=== PATIENT | male | born 1970 | race Caucasian/White ===

== ENCOUNTER → 2020-06-02 | Outpatient (CLI) | payer MEDICARE ==
[~2020-06-02] MED LIST: AZITHROMYCIN 2250 MG PO; BACTRIM DS TAB1 EACH PO; CLEOCIN HCL150 MG PO; IBUPROFEN 800800 M1 PO; NAPROSYN500 MG PO; NASAREL25 ML NS; NOHOMEMEDICATIONS; NORCO 5-325 TA1 EACH PO; NORFLEX100 MG PO; PYRIDIUM100 MG PO
== END ==
LOC: M.CT 12:34
PROVIDERS: ATTEND Specialist
DX: J43.9 Emphysema, unspecified (principal); R91.8 Other nonspecific abnormal finding of lung field; J98.4 Other disorders of lung

== ENCOUNTER → 2020-07-14 | Outpatient (CLI) | payer MEDICARE | LOC: M.CT 07-12 08:30 | PROVIDERS: ATTEND Internal Medicine Critical Care Medicine | DX: J43.9 Emphysema, unspecified (principal); R91.8 Other nonspecific abnormal finding of lung field; R04.2 Hemoptysis; J98.4 Other disorders of lung ==

== ENCOUNTER → 2020-10-26 | Outpatient (CLI) | payer MEDICARE | LOC: M.CT 08:10 | PROVIDERS: ATTEND Internal Medicine Critical Care Medicine | DX: J43.8 Other emphysema (principal); J98.4 Other disorders of lung; R91.8 Other nonspecific abnormal finding of lung field ==

== ENCOUNTER → 2021-04-20 | Outpatient (CLI) | payer MEDICARE | LOC: M.CT 04-14 08:00 | PROVIDERS: ATTEND Internal Medicine Critical Care Medicine | DX: J98.4 Other disorders of lung (principal); R91.1 Solitary pulmonary nodule; K82.8 Other specified diseases of gallbladder ==